=== PATIENT | female | born 1995 | race Caucasian/White ===

== ENCOUNTER 2021-01-14 14:11 | Emergency (ER) | payer BC ==
[~2021-01-14] VITALS: Ht 157.5 cm; Wt 53.5 kg
[2021-01-14] MEDS ORDERED: ONDANSETRON PF 4 MG/2 ML VIAL. IVP ONE (15:15)
[2021-01-14] MEDS ORDERED: IV NORMAL SALINE 1000ML BAG 1,000 ML IV SCH (15:15)
[2021-01-14 15:22] LABS: BILIRUBIN,URINE NEGATIVE (NEG); CLARITY,URINE TURBID; COLOR,URINE YELLOW; NITRITE,URINE NEGATIVE (NEG); PH,URINE 7.5 (<5.0-8.0); PROTEIN,URINE NEGATIVE (NEG-TRACE)
--- NOTE | 2021-01-14 15:25 | PHYS DOC ---
Past Medical History Past Medical History: Asthma Past Surgical History: Cancer Surgery, Tonsillectomy Additional Past Surgical Histo: TRAUMATIC FX WRIST Smoking Status: Current Every Day Smoker Alcohol Use: Rarely General Adult EDM: Chief Complaint: MULTIPLE COMPLAINTS HPI: HPI: Patient is a 25 year old female who presents with 8 days ago patient began having clots when she urinated that she gets many UTIs. She states that she went to [facility] and got an antibiotic of which she cannot remember the name of. She states she got done taking it this past Wednesday. She states that she woke up in the middle the night and she was sweating and having chills and she noticed when she wiped she has pink multiple paper. She states she is also having the discomfort in her lower abdomen pressure and bilateral flank pain. She states she is also having nausea. She states she is not been vomiting. She rates her discomfort at an 8 out of 10. She denies any concerns for sexually transmitted diseases or vaginal discharge. Has a history of asthma, smoking, cancer surgery, wrist fracture. Review of Systems: Review of Systems: Constitutional: Denies fever or +chills. [] Eyes: Denies change in visual acuity. [] HENT: Denies nasal congestion or sore throat. [] Respiratory: Denies cough or shortness of breath. [] Cardiovascular: Denies chest pain or edema. [] GI: + Low mid abdominal pain, +nausea, vomiting, bloody stools or diarrhea. [] : +dysuria. [] Musculoskeletal: + Bilateral flank back pain or denies joint pain. [] Integument: Denies rash. [] Neurologic: Denies headache, focal weakness or sensory changes. [] Endocrine: Denies polyuria or polydipsia. [] Lymphatic: Denies swollen glands. [] Psychiatric: Denies depression or anxiety. [] Heart Score: C/O Chest Pain: No Risk Factors: Risk Factors: DM, Current or recent (<one month) smoker, HTN, HLP, family history of CAD, obesity. Risk Scores: Score 0 - 3: 2.5% MACE over next 6 weeks - Discharge Home Score 4 - 6: 20.3% MACE over next 6 weeks - Admit for Clinical Observation Score 7 - 10: 72.7% MACE over next 6 weeks - Early Invasive Strategies Current Medications: Current Medications Medications (Trade) Dose Ordered Sig/Jhon Start Time Stop Time Status Last Admin Dose Admin Ondansetron HCl (Zofran) 4 mg 1X ONCE 01/14/21 15:15 01/14/21 15:16 UNV Sodium Chloride 1,000 ml @ 1,000 mls/hr Q1H 01/14/21 15:15 01/14/21 16:14 UNV Allergies: Allergies: Allergies Coded Allergies Type Severity Reaction Last Updated Verified pseudoephedrine Allergy Intermediate "MAKES ME SWELL" 01/14/21 Yes Physical Exam: PE: Constitutional: Well developed, well nourished, no acute distress, non-toxic ap pearance. [] HENT: Normocephalic, atraumatic, bilateral external ears normal, oropharynx moist, no oral exudates, nose normal. [] Eyes: PERRLA, EOMI, conjunctiva normal, no discharge. [] Neck: Normal range of motion, no tenderness, supple, no stridor. [] Cardiovascular:Heart rate regular rhythm, no murmur [] Lungs & Thorax: Bilateral breath sounds clear to auscultation [] Abdomen: Bowel sounds normal, soft, low mid tenderness, no masses, no pulsatile masses. [] Skin: Warm, dry, no erythema, no rash. [] Back: No tenderness, no CVA tenderness. [] Extremities: No tenderness, no cyanosis, no clubbing, ROM intact, no edema. [] Neurologic: Alert and oriented X 3, normal motor function, normal sensory function, no focal deficits noted. [] Psychologic: Affect normal, judgement normal, mood normal. [] Current Patient Data: Labs: Laboratory Tests Test 01/14/21 14:28 POC Urine HCG, Qualitative Hcg negative (Negative) Vital Signs: Vital Signs Date Time Temp Pulse Resp B/P (MAP) Pulse Ox O2 Delivery O2 Flow Rate FiO2 01/14/21 14:43 97.7 76 16 113/78 (90) 98 Room Air 97.7 EKG: EKG: [] Radiology/Procedures: Radiology/Procedures: [] Impression: [facility] [address] [place] [address] IMAGING REPORT Signed PATIENT: DORI SHERIDAN ACCOUNT: [id number] : 1995 LOCATION: ER AGE: 25 SEX: F EXAM STATUS: REG ER ORD. PHYSICIAN: ALEN MARCH APRN REASON: flank pain, uti, diarrhea PROCEDURE: CT ABDOMEN PELVIS WO CONTRAST Examination: CT of the abdomen pelvis without contrast HISTORY: History of flank pain, urinary tract infection, diarrhea COMPARISON: 12/26/2019 TECHNIQUE: Axial CT images of the abdomen pelvis without contrast. Coronal and sagittal reformats performed. Exposure: One or more of the following individualized dose reduction techniques were utilized for this examination: 1. Automated exposure control 2. Adjustment of the mA and/or kV according to patient size 3. Use of iterative reconstruction technique FINDINGS: Minimal bibasilar lung atelectasis. No evidence of free air identified in the abdomen The evaluation of the solid organs is limited due to lack of IV contrast. The evaluation of bowel is limited due to lack of oral contrast. The visualized noncontrasted liver, spleen, adrenals grossly appears unremarkable. The gallbladder is mildly distended. The stomach is mildly distended with visualized pancreas grossly appears unremarkable Small bowel is nondilated. The appendix is normal. There is mild thickened appearance of the wall of the descending colon in its midportion with minimal questionable surrounding fat stranding. Feces and gas noted in the colon. Punctate 1 mm calculus right kidney.. Intrauterine contraceptive device is identified. No evidence of lytic bony destructive lesion. IMPRESSION: 1. Mild thickened appearance of the wall of the descending colon in its midportion with minimal questionable surrounding fat stranding could be due to nondistention or mild colitis. 2. Punctate 1 mm calculus right kidney. Electronically signed by: Hunter Adams MD (01/14/2021 3:53 PM) [id number] DICTATED and SIGNED BY: HUNTER ADAMS MD DATE: 01/14/21 [id number] Course & Med Decision Making: Course & Med Decision Making Pertinent Labs and Imaging studies reviewed. (See chart for details) See HPI. Alert and oriented x4. Skin pink warm and dry. Ambulatory to steady gait. Speaks in full clear sentences. Low mid abdominal pressure tenderness. CT shows colitis. Urinalysis shows infection. Will place on metronidazole and ciprofloxacin. This will take care of both. Blood work is unremarkable. Patient is stable and is keeping fluids down. [] Dragon Disclaimer: Dragon Disclaimer: This electronic medical record was generated, in whole or in part, using a voice recognition dictation system. Departure Departure Impression: Primary Impression: Colitis Additional Impression: UTI (urinary tract infection) Qualified Codes: N39.0 - Urinary tract infection, site not specified; R31.9 - Hematuria, unspecified Disposition: HOME / SELF CARE / HOMELESS Condition: STABLE Referrals: NO PCP (PCP) KALYN CONTRERAS MD Patient Instructions: Colitis, Urinary Tract Infection Additional Instructions: Follow-up with primary care physician. Take medication as prescribed and with food. Drink plenty of fluids. If you begin running a high fever or cannot keep any fluids down return to hospital. Do not drink any alcohol with medications as they will make you vomit. You should also follow-up with a urologist of your choosing due to frequent Andrea tract infections. We do not have urology at this hospital. Scripts Metronidazole (METRONIDAZOLE) 500 Mg Tablet 1 TAB PO BID for 7 Days, #14 TAB 0 Refills Prov: ALEN MARCH [employer] 01/14/21 Ciprofloxacin Hcl (CIPRO) 500 Mg Tablet 1 TAB PO BID for 10 Days, #20 TAB 0 Refills Prov: ALEN MARCH [employer] 01/14/21 Ondansetron (ONDANSETRON ODT) 4 Mg Tab.rapdis 1 TAB PO PRN Q6-8HRS, #16 TAB Prov: ALEN MARCH [employer] 01/14/21 ALEN MARCH [employer] Jan 14, 2021 15:25
[2021-01-14 15:30] LABS: BASO # 0.1 x10^3/uL (0.0-0.2); BASO % 1 % (0-3); EOS # 0.1 x10^3/uL (0.0-0.7); EOS % 1 % (0-3); HEMATOCRIT 37.3 % (36.0-47.0); LYMPH # 2.3 x10^3/uL (1.0-4.8); LYMPH % 26 % (24-48); MEAN CORPUSCULAR HEMOGLOBIN 31 pg (25-35); MEAN CORPUSCULAR HGB CONC 35 g/dL (31-37); MEAN CORPUSCULAR VOLUME 88 fL (79-100); MONO # 0.7 x10^3/uL (0.0-1.1); MONO % 8 % (0-9); NEUT # 5.9 x10^3/uL (1.8-7.7); NEUT % 65 % (31-73); PLATELET COUNT 348 x10^3/uL (140-400); RED BLOOD COUNT 4.24 x10^6/uL (3.50-5.40); RED CELL DISTRIBUTION WIDTH 14.5 % (11.5-14.5); WHITE BLOOD COUNT 9.1 x10^3/uL (4.0-11.0)
[2021-01-14 15:39] LABS: AMORPHOUS SEDIMENT,UR PRESENT /HPF; BACTERIA,URINE FEW /HPF (0-FEW)
[2021-01-14 15:42] LABS: CALCIUM 9.1 mg/dL (8.5-10.1); CREATININE 0.7 mg/dL (0.6-1.0); GFR 102.8
[2021-01-14 15:48] LABS: ALBUMIN 3.9 g/dL (3.4-5.0); ALBUMIN/GLOBULIN RATIO 1.3 (1.0-1.7); TOTAL PROTEIN 6.9 g/dL (6.4-8.2)
--- NOTE | 2021-01-14 15:56 | RAD ---
Examination: CT of the abdomen pelvis without contrast HISTORY: History of flank pain, urinary tract infection, diarrhea COMPARISON: 12/26/2019 TECHNIQUE: Axial CT images of the abdomen pelvis without contrast. Coronal and sagittal reformats per formed. Exposure: One or more of the following individualized dose reduction techniques were utilized for thi s examination: 1. Automated exposure control 2. Adjustment of the mA and/or kV according to patient size 3. Use of iterative reconstruction technique FINDINGS: Minimal bibasilar lung atelectasis. No evidence of free air identified in the abdomen The evaluation of the solid organs is limited due to lack of IV contrast. The evaluation of bowel is limited due to lack of oral contrast. The visualized noncontrasted liver, spleen, adrenals grossly ap pears unremarkable. The gallbladder is mildly distended. The stomach is mildly distended with visuali zed pancreas grossly appears unremarkable Small bowel is nondilated. The appendix is normal. There is mild thickened appearance of the wall of the descending colon in its midportion with minimal questionable surrounding fat stranding. Feces and gas noted in the colon. Punctate 1 mm calculus right kidney.. Intrauterine contraceptive de vice is identified. No evidence of lytic bony destructive lesion. IMPRESSION: 1. Mild thickened appearance of the wall of the descending colon in its midportion with minimal ques tionable surrounding fat stranding could be due to nondistention or mild colitis. 2. Punctate 1 mm calculus right kidney. Electronically signed by: Hunter Adams MD (01/14/2021 3:53 PM) [id number]
[2021-01-14] MEDS ORDERED: ONDA4TAB12 PO (16:09)
[2021-01-14] MEDS ORDERED: CIPR500T94 PO (16:09)
[2021-01-14] MEDS ORDERED: METR-34 PO (16:09)
[2021-01-14 16:10] VITALS: BP 120/62
== END 2021-01-14 16:41 | disposition home or self-care (01) ==
LOC: ER 14:11
DX: K52.9 Noninfective gastroenteritis and colitis, unspecified (principal); N39.0 Urinary tract infection, site not specified; J45.909 Unspecified asthma, uncomplicated; F17.200 Nicotine dependence, unspecified, uncomplicated; Z88.8 Allergy status to other drugs, medicaments and biological substances
CPT/HCPCS: 36415; 74176; 80053; 81001; 81025; 83690; 85025; 87086; 96361; 96374; 99284; J2405; J7030